=== PATIENT | male | born 1975 | race Caucasian/White ===

== ENCOUNTER 2017-03-17 01:16 | Inpatient (IN) | payer MEDICAID, OTHER ==
[2017-03-17] VITALS (27 sets, daily range): BP systolic 87–134; BP diastolic 58–82; PULSE 72–95; RESP 13–21; TEMP 98.8; Ht 165.1 cm; Wt 84.0 kg
[~2017-03-17] VITALS: Ht 165.1 cm; Wt 84.0 kg
--- NOTE | 2017-03-17 02:23 | ERA ---
ER Documentation Chief Complaint Date/Time DATE: 03/17/17 TIME: 02:22 Chief Complaint Chest pain HPI The patient is a 41-year-old male, presenting to the ER because of right-sided chest pain radiating to the right shoulder and right arm that woke him up around 12:40 AM, associated with diaphoresis. It lasted for approximately 20 minutes. He has minimal symptoms now, denies similar symptoms previously, denies fever, chills, neck pain, chest pain, dyspnea, abdominal pain, vomiting, dysuria, diarrhea. He does not smoke nor drink. No family cardiac history Past medical history: Hereditary angioedema Past surgical history: None ROS All systems reviewed and are negative except as per history of present illness. Allergies Allergies: Coded Allergies: No Known Allergy (Unverified , 04/17/15) PMhx/Soc Medical and Surgical Hx: pt denies Surgical Hx Hx Miscellaneous Medical Probl: Yes (angioedema) Hx Alcohol Use: No Hx Substance Use: No Hx Tobacco Use: No Smoking Status: Never smoker Physical Exam Vitals Vital Signs Date Time Temp Pulse Resp B/P Pulse Ox O2 Delivery O2 Flow Rate FiO2 03/17/17 03:42 81 18 132/89 100 Nasal Cannula 2.0 03/17/17 02:43 92 19 138/85 100 Nasal Cannula 2.0 03/17/17 02:42 Nasal Cannula 2 03/17/17 01:31 140/89 03/17/17 01:29 98.3 100 24 148/93 99 Physical Exam Const: No acute distress. Head: Atraumatic. Eyes: Normal Conjunctiva. ENT: Normal External Ears, Nose and Mouth. Neck: Full range of motion. No meningismus. Resp: Clear to auscultation bilaterally. Cardio: Regular rate and rhythm, no murmurs. Abd: Soft, non distended, normal bowel sounds, non tender. Skin: No petechiae or rashes. Back: No midline or flank tenderness. Ext: No cyanosis, or edema. Neur: Awake and alert. No focal deficit Psych: Normal Mood and Affect. Result Diagram: 03/17/17 0235 03/17/17 0235 Results 24 hrs Laboratory Tests Test 03/17/17 02:35 White Blood Count 10.210^3/ul Red Blood Count 4.9710^6/ul Hemoglobin 15.0g/dl Hematocrit 43.4% Mean Corpuscular Volume 87.3fl Mean Corpuscular Hemoglobin 30.2pg Mean Corpuscular Hemoglobin Concent 34.6g/dl Red Cell Distribution Width 13.5% Platelet Count 19128^3/UL Mean Platelet Volume 9.7fl Neutrophils % 62.6% Lymphocytes % 25.7% Monocytes % 10.2% Eosinophils % 1.0% Basophils % 0.2% Nucleated Red Blood Cells % 0.0/100WBC Neutrophils # 6.410^3/ul Lymphocytes # 2.610^3/ul Monocytes # 1.010^3/ul Eosinophils # 0.110^3/ul Basophils # 0.010^3/ul Nucleated Red Blood Cells # 0.010^3/ul Prothrombin Time 13.1Sec Prothrombin Time Ratio 1.0 INR International Normalized Ratio 0.99 Activated Partial Thromboplast Time 25.2Sec D-Dimer 652.87ng/ml D-Dimer Comment Sodium Level 142mmol/L Potassium Level 3.0mmol/L Chloride Level 99mmol/L Carbon Dioxide Level 28mmol/L Anion Gap 18 Blood Urea Nitrogen 14mg/dl Creatinine 0.91mg/dl Glucose Level 109mg/dl Calcium Level 9.0mg/dl Magnesium Level 2.4mg/dl Troponin I 1.870ng/ml Current Medications Medications (Trade) Dose Ordered Sig/Ximena Route PRN Reason Start Time Stop Time Status Last Admin Dose Admin Aspirin (Aspirin) 325 mg ONCE ONCE PO 03/17/17 03:30 03/17/17 03:32 DC 03/17/17 03:36 Nitroglycerin 1 inch 1 inch ONCE ONCE TD 03/17/17 03:30 03/17/17 03:32 DC 03/17/17 03:37 Potassium Chloride 250 ml @ 62.5 mls/hr ONCE ONCE IVPB 03/17/17 03:30 03/17/17 07:29 Potassium Chloride (KCl 10 MEQ/50 ML SW) 50 ml @ 50 mls/hr ONCE ONCE IVPB 03/17/17 03:30 03/17/17 04:29 03/17/17 03:45 Enoxaparin Sodium (Lovenox) 85 mg ONCE STAT SC 03/17/17 03:29 03/17/17 03:33 DC 03/17/17 03:37 IV Flush 10 ml 10 ml STK-MED ONCE .ROUTE 03/17/17 03:47 03/17/17 03:48 DC 03/17/17 03:58 Sodium Chloride 100 ml @ ud STK-MED ONCE .ROUTE 03/17/17 03:47 03/17/17 03:48 DC 03/17/17 03:58 Iohexol (Omnipaque) 100 ml @ ud STK-MED ONCE .ROUTE 03/17/17 03:47 03/17/17 03:48 DC 03/17/17 03:58 Procedures/[place] [address] Radiology Main Line: [phone] DIAGNOSTIC IMAGING REPORT Patient: HAYLEY TOSCANO : 1975 Age: 41 Sex: M MR #: [id number] DOS: 03/17/17 0228 Ordering MD: JULIO CACERES MD Location: E/R Room/Bed: PROCEDURE: XR Chest. CLINICAL INDICATION: Chest pain TECHNIQUE: Portable single view of the chest COMPARISON: None. FINDINGS: The cardiomediastinal silhouette appears within normal limits. The lungs are clear and no pleural effusion or significant edema is seen. No bony abnormality is seen. IMPRESSION: No definite acute pulmonary disease. RPTAT: HLBE Physician June Date Time Electronically viewed and signed by Kiana Rodriguez Physician on 03/17/2017 03 :27 LE/ CC: JULIO CACERES MD CT angiogram of the chest to rule out pulmonary embolism and bilateral venous ultrasound of the legs to rule out DVT is pending Magnesium level is pending EKG: Read by emergency physician at 1:19 AM Rate/Rhythm: Sinus tachycardia 110 beats/min QRS, ST, T-waves: No ST elevation, no T inversion, early repolarization Impression: Abnormal EKG EKG: Read by emergency physician 2:38 AM Rate/Rhythm: Normal Sinus Rhythm 88 beats/min QRS, ST, T-waves: No ST elevation, no T inversion Impression: Normal EKG EKG: Read by emergency physician 3:33 AM Rate/Rhythm: Normal Sinus Rhythm 82 beats/min QRS, ST, T-waves: No ST elevation, no T inversion Impression: Normal EKG MEDICAL MAKING DECISION: The patient is a 41-year-old male, presenting with acute non-STEMI, acute hypokalemia. He was treated with aspirin 325 mg p.o., 1 inch of nitroglycerin ointment to the chest wall, Lovenox 1 mg/kg subcutaneously for acute non-STEMI, potassium chloride 50 mEq IV due to low potassium The differential diagnoses considered include but are not limited to acute coronary syndrome, acute myocardial infarction, pericarditis, pulmonary embolism , aortic dissection, pneumonia, pleural effusion, pneumothorax, GERD, chest wall pain. Critical Care: Time: 45 minutes excluding all billable procedures. Treatments/Evaluations: Close monitoring and treatment of unstable vital signs, cardiorespiratory, and neurologic status, while maintaining tight balance of fluid, respiratory, and cardiac interventions. Departure Diagnosis: Primary Impression: Non-STEMI (non-ST elevated myocardial infarction) Additional Impression: Hypokalemia Condition: Critical Comments I discussed the findings with the patient. I discussed the patient with the on- call hospitalist Dr. Nicholson who was made aware of the lab, the treatment, the patient condition. The patient is admitted to ICU at 4:20 am JULIO CACERES MD Mar 17, 2017 02:23
[2017-03-17 02:52] LABS: ADD SCAN DIFF NO
[2017-03-17 02:53] LABS: BASOPHILS % 0.2 % (0.0-2.0); EOSINOPHILS # 0.1 10^3/ul (0.0-0.5); HEMATOCRIT 43.4 % (42.0-52.0); LYMPHOCYTES # 2.6 10^3/ul (0.8-2.9); LYMPHOCYTES % 25.7 % (15.0-51.0); MEAN CORPUSCULAR HEMOGLOBIN 30.2 pg (29.0-33.0); MEAN CORPUSCULAR HGB CONC 34.6 g/dl (32.0-37.0); MEAN CORPUSCULAR VOLUME 87.3 fl (82.0-101.0); MEAN PLATELET VOLUME 9.7 fl (7.4-10.4); MONOCYTES % 10.2 % (0.0-11.0); NEUTROPHIL # 6.4 10^3/ul (1.6-7.5); NEUTROPHILS % 62.6 % (39.0-77.0); PLATELET COUNT 329 10^3/UL (140-415); RED BLOOD COUNT 4.97 10^6/ul (4.70-6.10); RED CELL DISTRIBUTION WIDTH 13.5 % (11.5-14.5); WHITE BLOOD COUNT 10.2 10^3/ul (4.8-10.8)
[2017-03-17 03:01] LABS: INR 0.99; PROTIME 13.1 Sec (12.2-14.2)
[2017-03-17 03:02] LABS: PARTIAL THROMBOPLASTIN TIME 25.2 Sec (25.0-35.0)
[2017-03-17 03:04] LABS: D-DIMER 652.87 ng/ml (<460)
[2017-03-17 03:07] LABS: CREATININE 0.91 mg/dl (0.61-1.24)
[2017-03-17 03:25] LABS: TROPONIN-I 1.87 ng/ml (0.00-0.12)
--- NOTE | 2017-03-17 03:27 | RADRPT ---
PROCEDURE: XR Chest. CLINICAL INDICATION: Chest pain TECHNIQUE: Portable single view of the chest COMPARISON: None. FINDINGS: The cardiomediastinal silhouette appears within normal limits. The lungs are clear and no pleural e ffusion or significant edema is seen. No bony abnormality is seen. IMPRESSION: No definite acute pulmonary disease. RPTAT: HLBE Kiana Rodriguez Physician Date Time Electronically viewed and signed by Kiana Rodriguez, Physician on 03/17/2017 03:27 LE/
[2017-03-17] MEDS ORDERED: ENOXAPARIN 100 MG/ML SYG SC STA (03:29)
[2017-03-17] MEDS ORDERED: ASPIRIN 325 MG TAB PO ONE (03:30)
[2017-03-17] MEDS ORDERED: POTASSIUM CHLORIDE 250 ML IVPB ONE (03:30)
[2017-03-17] MEDS ORDERED: NITROGLYCERIN 2% 1 GM OINT PKT TD ONE (03:30)
[2017-03-17] MEDS ORDERED: POTASSIUM CHLORIDE 50 ML IVPB ONE (03:30)
[2017-03-17] MEDS ORDERED: SOD CHLORIDE 0.9% 100 ML ONE (03:47)
[2017-03-17] MEDS ORDERED: IOHEXOL 100 ML ONE (03:47)
--- NOTE | 2017-03-17 04:29 | RADRPT ---
PROCEDURE: CTA Chest CLINICAL INDICATION: Shortness of breath TECHNIQUE: Thin section spiral CT images were obtained through the vasculature of the chest during administration of 1 and a cc of Omnipaque 350 contrast material. Multiplanar reconstructions and 3 -D maximum intensity projection reconstructed images were performed. The images were reviewed on a PACS workstation. The total exam CTDI equals 16.58 mGy, and the total exam DLP equals 651.99 mGy-c m. One or more of the following dose reduction techniques were used: automated exposure control, ad justment of the mA and/or kV according to patient size, or use of iterative reconstruction technique . COMPARISON: Chest x-ray from 03/17 FINDINGS: Slight dependent atelectasis of the lungs is seen. No focal infiltrate or pleural effusion is seen. No pericardial effusion is seen. No hilar or mediastinal adenopathy is seen. There is no definite evidence for pulmonary embolus or aortic dissection. Visualized portions of the upper abdomen are unremarkable. There is mild degenerative change of the spine. IMPRESSION: No evidence for pulmonary embolus or aortic dissection. No definite acute disease. RPTAT: HLBE Physician June Date Time Electronically viewed and signed by Physician June on 03/17/2017 04:29 LENNOX/
[2017-03-17] MEDS ORDERED: NACL 0.9% 3 ML SYG IV SCH (04:30)
[2017-03-17] MEDS ORDERED: DEXTROSE 5%-0.45% NACL 1,000 ML IV SCH (04:30)
[2017-03-17] MEDS ORDERED: NITROGLYCERIN (SL) 0.4 MG TAB SL PRN (04:30)
[2017-03-17] MEDS ORDERED: ALBUTEROL/IPRATROPIUM (NEB) 3 ML AMP HHN PRN (04:30)
[2017-03-17] MEDS ORDERED: ACETAMINOPHEN 325 MG TAB PO PRN (04:30)
[2017-03-17] MEDS ORDERED: LORAZEPAM 2 MG INJ IV PRN (04:30)
[2017-03-17] MEDS ORDERED: morphine 2 MG INJ IV PRN (04:30)
[2017-03-17] MEDS ORDERED: ATORVASTATIN 40 MG TAB PO STA (04:30)
[2017-03-17] MEDS ORDERED: ONDANSETRON 4 MG INJ IV PRN (04:30)
--- NOTE | 2017-03-17 04:47 | RADRPT ---
PROCEDURE: US Lower extremity Venous. CLINICAL INDICATION: Rule out deep venous thrombosis, shortness of breath TECHNIQUE: Multiple sonographic images of the bilateral lower extremity deep venous system was obt ained utilizing grayscale, color-flow, compressive sonography and doppler imaging with augmentation. The images were reviewed on a PACS workstation. COMPARISON: None. FINDINGS: There is normal compressibility and flow within the bilateral common femoral, femoral, popliteal, po sterior tibial and peroneal veins. IMPRESSION: No sonographic evidence for bilateral lower extremity deep venous thrombosis. RPTAT: HJES .Charanjit Nichols MD, MD Date Time Electronically viewed and signed by .Charanjit Nichols MD, MD on 03/17/2017 04:46 .S/
[2017-03-17] MEDS: PANTOPRAZOLE 40 MG INJ IV SCH (05:21)
--- NOTE | 2017-03-17 07:23 | HP ---
DATE OF ADMISSION: 03/17/2017 TIME SEEN: 6:00 a.m. CHIEF COMPLAINT: Chest pain. HISTORY OF PRESENT ILLNESS: The patient is a 41-year-old male with history of Hereditary Angioedema on Danazol who presented to the ER with his complaining of chest pain. Chest pain is located in the right upper chest area radiating to his right shoulder and right arm. The pain started around 12:30 this morning. He denied any shortness of breath, nausea, vomiting, but he reported sweating. When he presented to the ER, blood pressure was 148/93, heart rate 100, respiratory rate 24, temperature 98.3, oxygen saturation 99% on room air. Laboratory value shows that his first troponin is elevated at 1.87, potassium is 3. Otherwise, CBC and BMP are within normal limits. Chest x-ray shows clear lungs. CT pulmonary angiogram shows no PE or aortic dissection. Lower extremity deep venous thrombosis was negative for thrombosis. He was given a treatment dose of Lovenox, aspirin 325 mg daily, Lipitor 40 mg, and nitroglycerin. REVIEW OF SYSTEMS: A 12-point review of systems was performed and negative except as mentioned in HPI. PAST MEDICAL HISTORY: As per HPI. PAST SURGICAL HISTORY: Denies. FAMILY HISTORY: Denied heart disease, stroke or sudden SOCIAL HISTORY: Denied a history of tobacco or illicit drug use but drinks alcohol occasionally. ALLERGIES: NO KNOWN DRUG ALLERGIES. HOME MEDICATIONS: Danazol PHYSICAL EXAMINATION VITAL SIGNS: Blood pressure 101/71, heart rate 96, respiratory rate 18, temperature 98.3, oxygen saturation 100% on 2 liters. GENERAL: The patient is diaphoretic, but he is alert and oriented x4. HEENT: No obvious head deformity. Pupils are reactive to light. Extraocular movements intact. CARDIOVASCULAR: Slightly tachycardic with regular rhythm. LUNGS: Clear. ABDOMEN: Soft, nontender. Positive bowel sounds. EXTREMITIES: No edema in the lower extremities. NEUROLOGIC: No focal deficits. LABORATORY: Troponin 1.87 and potassium 3. Otherwise, CBC and BMP are within normal limits. IMAGING: A chest x-ray and CT pulmonary angiogram and lower extremity venous Doppler ultrasound with results as mentioned in the HPI. IMPRESSION: 1. Non-ST elevation myocardial infarction. 2. Chest pain secondary to above. 3. Hypokalemia. 4. History of Hereditary Angioedema PLAN: We will admit the patient to either telemetry or ICU. We will trend his troponins. He has already received a treatment dose of Lovenox. Will continue aspirin, statin, and I will start him on a beta janice and he will receive as needed nitroglycerin and morphine. We will continue oxygen therapy. We will obtain a 2D echo and place a cardiology consultation. We will check an A1c, fasting lipids, and TSH. Cont Danazol for Angioedema. Further workup and management per clinical course. Dictated By: XENIA PATEL/[place] Conf#: [id number] DID#: [id number] MTDD
[2017-03-17] MEDS ORDERED: METOPROLOL 25 MG TAB PO SCH (09:00)
[2017-03-17] MEDS ORDERED: ASPIRIN 81 MG TAB PO SCH (09:00)
[2017-03-17 09:12] LABS: CHOL/HDL RATIO 5.5 RATIO
[2017-03-17 09:43] LABS: THYROID STIMULATING HORMONE 2.79 MIU/L (0.465-4.680)
[2017-03-17 10:08] LABS: CK-MB 15.3 ng/ml (0.0-2.4)
[2017-03-17] MEDS ORDERED: [UNRECOGNIZED DRUG - CODE] PO (10:28)
[2017-03-17] MEDS ORDERED: PROPOFOL 100 ML IV ONE (10:30)
[2017-03-17 10:39] LABS: TROPONIN-I 4.89 ng/ml (0.00-0.12)
[2017-03-17] MEDS ORDERED: DIPHENHYDRAMINE 50 MG INJ IV ONE (13:30)
[2017-03-17 14:43] LABS: TROPONIN-I 3.22 ng/ml (0.00-0.12)
[2017-03-17] MEDS ORDERED: HEPARIN 1000 UNITS/ML 10 ML INJ IV ONE (15:00)
[2017-03-17] MEDS ORDERED: HEPARIN 1000 UNITS/ML 10 ML INJ IV PRN (15:00)
[2017-03-17 15:19] LABS: ADD SCAN DIFF NO
[2017-03-17 15:22] LABS: BASOPHILS % 0.2 % (0.0-2.0); EOSINOPHILS # 0.2 10^3/ul (0.0-0.5); EOSINOPHILS % 1.6 % (0.0-7.0); HEMATOCRIT 38.1 % (42.0-52.0); LYMPHOCYTES # 3.1 10^3/ul (0.8-2.9); LYMPHOCYTES % 34.1 % (15.0-51.0); MEAN CORPUSCULAR HEMOGLOBIN 30.2 pg (29.0-33.0); MEAN CORPUSCULAR HGB CONC 34.1 g/dl (32.0-37.0); MEAN CORPUSCULAR VOLUME 88.6 fl (82.0-101.0); MEAN PLATELET VOLUME 9.7 fl (7.4-10.4); MONOCYTE # 0.9 10^3/ul (0.3-0.9); MONOCYTES % 9.3 % (0.0-11.0); NEUTROPHILS % 54.5 % (39.0-77.0); PLATELET COUNT 304 10^3/UL (140-415); RED CELL DISTRIBUTION WIDTH 13.8 % (11.5-14.5); WHITE BLOOD COUNT 9.2 10^3/ul (4.8-10.8)
[2017-03-17 15:34] LABS: INR 0.96; PARTIAL THROMBOPLASTIN TIME 28.4 Sec (25.0-35.0); PROTIME 12.8 Sec (12.2-14.2)
[2017-03-17] MEDS: HEPARIN 25000 UNITS/250 ML 250 ML IV SCH ×2 (15:37→23:22)
--- NOTE | 2017-03-17 17:15 | CONS ---
DATE OF ADMISSION: 03/17/2017 DATE OF CONSULTATION: 03/17/2017 TYPE OF CONSULTATION: Cardiology REASON FOR CONSULTATION: Non-ST elevation myocardial infarction. REQUESTING PHYSICIAN: Sergey Sesay MD from the hospitalist service. HISTORY OF PRESENT ILLNESS: Mr. Preciado is a 41-year-old male with a history of hereditary angioedem a on danazol medication, who initially presented with complaints of substernal chest pain radiating to his throat and his shoulder, described as a tightness or pressure-like sensation. The patient pearl bsequently presented to the emergency department where upon arrival, temperature 98.3, blood pressur e 148/93, pulse 100, respiratory rate 24, saturating 99%. The patient's labs revealed white count 1 0.2, hemoglobin 15, platelet count 329. Sodium 142, potassium 3.0, creatinine of 0.91, BUN 14. Tro ponin positive at 1.87. INR of 0.99. The patient underwent a chest x-ray revealing no acute cardio pulmonary abnormalities. A venous ultrasound revealing no sonographic evidence of lower extremity d eep venous thrombosis. A CT/CTA revealing no evidence of pulmonary embolus or aortic dissection. T he patient's electrocardiogram revealed sinus tachycardia at a rate of 110, normal axis, normal inte rvals with nonspecific ST and T-wave abnormalities and borderline inferior Q's. The patient thereaf ter had serial EKGs revealing J-point elevation, but no true significant ST elevations and ongoing b orderline inferior Q's. The patient had troponins trended going from 1.87 up to 4.89, now back down to 3.22. The patient has been treated with aspirin, IV heparin and beta janice, and now awaits ad luis to the hospital. PAST MEDICAL HISTORY: As above in HPI. MEDICATIONS CURRENTLY IN HOSPITAL: 1. Lipitor 40 mg at bedtime. 2. Heparin IV. 3. Aspirin 81 mg daily. 4. Metoprolol 25 mg q.12h. 5. Protonix 40 mg IV daily. 6. IV fluid hydration at 100 mL/hour D5. ALLERGIES: TYLENOL. SOCIAL HISTORY: No tobacco, ETOH or illicit drug use. FAMILY HISTORY: No history of sudden cardiac or early CAD. REVIEW OF SYSTEMS: As above in HPI. CONSTITUTIONAL: No fevers, chills. PULMONARY: No current shortness of breath. CARDIOVASCULAR: Chest pain, non-ST elevation myocardial infarction. GASTROINTESTINAL: No vomiting. GENITOURINARY: No hematuria. MUSCULOSKELETAL: Degenerative joint disease. PSYCHIATRIC: The patient denies depression. NEUROLOGIC: No documented history of CVA. PHYSICAL EXAMINATION: VITAL SIGNS: Temperature of 98.3, blood pressure 100/73, pulse 84, respiratory rate 17, saturating 97%. GENERAL: The patient is alert, awake, in no acute distress. NECK: JVP approximately 8 cm water. CHEST: Fair air movement throughout. HEART: Regular rate and rhythm. Normal S1, S2, I/ systolic murmur, nondisplaced PMI. ABDOMEN: Positive bowel sounds, soft. EXTREMITIES: No edema, 1+ pulses bilaterally posterior tibial. LABORATORY DATA: As above in HPI with most recent white count 9.2, hemoglobin 13, platelet count 30 4. LDL 67, HDL 21. TSH 2.79. IMAGING STUDIES: As above in HPI. No further imaging studies for my review at this time. ECG: As above in HPI. No further electrocardiograms for my review at this time. IMPRESSION: 1. Non-ST elevation myocardial infarction with now currently down-trending cardiac enzymes after in itial uptrend. 2. Chest pain secondary to #1. 3. Abnormal electrocardiogram with inferior Q's. 4. Hypertension, borderline. 5. Hereditary angioedema. RECOMMENDATIONS: 1. At this time, the patient will be admitted to telemetry monitoring to follow rhythm and rate con trol closely. 2. We will continue to trend the patient's cardiac enzymes to assess for any significant ongoing ca rdiac damage. 3. Continue the patient's IV heparin at this time and the patient's aspirin. Also continue the [facility] ient's beta janice. Will decrease dose to allow the patient to better tolerate. 4. Check a 2D echocardiogram to further assess patient's ejection fraction, wall motion and any yashira or valve abnormalities. 5. Continue the patient's statin therapy. 6. Given the patient's non-ST elevation myocardial infarction, I believe this patient will benefit from inpatient revascularization with left heart catheterization during this index admission and martin s, we scheduled to take place as soon as possible. Thank you for allowing me to take part in the care of this patient. I will continue to follow him melissa henry closely with you. Further recommendations to be made as the patient progresses through his [facility] clinical course. Dictated By: MICHEAL JARAMILLO/[place] Conf#: [id number] DID#: [id number] CC: SERGEY SESAY MD;*[facility]*
[2017-03-17] MEDS: DEXTROSE 5%-0.45% NACL 1,000 ML IV SCH (17:19)
[2017-03-17] MEDS: ATORVASTATIN 40 MG TAB PO SCH (21:37)
[2017-03-17] MEDS: METOPROLOL 25 MG TAB PO SCH (21:38)
--- NOTE | 2017-03-17 21:45 | EN ---
Date/Time of Note Date/Time of Note DATE: 03/17/17 TIME: 21:39 Event Note Medicine Medicine Event Note Wrong chart was accessed. XENIA SESAY MD Mar 17, 2017 21:45 family was aware and were at bedside just a little while ago. . XENIA SESAY MD Mar 17, 2017 21:45
[2017-03-17 22:44] LABS: CK-MB 7.79 ng/ml (0.0-2.4); TROPONIN-I 2.76 ng/ml (0.00-0.12)
[2017-03-18] VITALS (10 sets, daily range): BP systolic 118–137; BP diastolic 61–78; PULSE 73–95; RESP 16–18
[2017-03-18] MEDS: PANTOPRAZOLE 40 MG INJ IV SCH (05:23)
[2017-03-18] MEDS: DEXTROSE 5%-0.45% NACL 1,000 ML IV SCH ×2 (05:23→18:09)
[2017-03-18 06:43] LABS: ADD SCAN DIFF NO
[2017-03-18 06:50] LABS: BASOPHILS % 0.3 % (0.0-2.0); EOSINOPHILS # 0.1 10^3/ul (0.0-0.5); EOSINOPHILS % 0.8 % (0.0-7.0); HEMATOCRIT 41.4 % (42.0-52.0); HEMOGLOBIN 13.9 g/dl (14.0-18.0); LYMPHOCYTES # 3.2 10^3/ul (0.8-2.9); LYMPHOCYTES % 29.7 % (15.0-51.0); MEAN CORPUSCULAR HEMOGLOBIN 29.4 pg (29.0-33.0); MEAN CORPUSCULAR HGB CONC 33.6 g/dl (32.0-37.0); MEAN CORPUSCULAR VOLUME 87.5 fl (82.0-101.0); MEAN PLATELET VOLUME 10.2 fl (7.4-10.4); MONOCYTE # 0.9 10^3/ul (0.3-0.9); MONOCYTES % 8.5 % (0.0-11.0); NEUTROPHIL # 6.6 10^3/ul (1.6-7.5); NEUTROPHILS % 60.3 % (39.0-77.0); PLATELET COUNT 367 10^3/UL (140-415); RED BLOOD COUNT 4.73 10^6/ul (4.70-6.10); RED CELL DISTRIBUTION WIDTH 13.4 % (11.5-14.5); WHITE BLOOD COUNT 10.9 10^3/ul (4.8-10.8)
[2017-03-18 07:08] LABS: POTASSIUM 3.2 mmol/L (3.5-5.1)
[2017-03-18 07:10] LABS: CREATININE 0.77 mg/dl (0.61-1.24)
[2017-03-18 07:11] LABS: ALBUMIN/GLOBULIN RATIO 1.11; BILIRUBIN,INDIRECT 0.7 mg/dl (0-1.1); BILIRUBIN,TOTAL 0.7 mg/dl (0.2-1.3); CALCIUM 8.6 mg/dl (8.4-10.2); TOTAL PROTEIN 7.6 g/dl (6.1-8.1)
[2017-03-18 07:12] LABS: MAGNESIUM 2.1 mg/dl (1.7-2.5)
[2017-03-18] MEDS: HEPARIN 25000 UNITS/250 ML 250 ML IV SCH ×3 (07:33→21:48)
[2017-03-18] MEDS: METOPROLOL 25 MG TAB PO SCH ×2 (08:17→21:40)
[2017-03-18] MEDS ORDERED: POTASSIUM CHLORIDE (SR) 20 MEQ TAB PO STA (13:31)
--- NOTE | 2017-03-18 13:31 | CONS ---
Date/Time of Note Date/Time of Note DATE: 03/18/17 TIME: 13:28 Assessment/Plan Assessment/Plan Chief Complaint/Hosp Course IMPRESSION: 1. Non-ST elevation myocardial infarction with now currently down-trending cardiac enzymes after initial uptrend. 2. Chest pain secondary to #1. 3. Abnormal electrocardiogram with inferior Q's. 4. Hypertension, borderline. 5. Hereditary angioedema. 6.Hypokalemia Recc: -Tele -serial ecg;'s -Continue statin/heparin -trend cardiac enzymes -Not on asa due to possible side effect -LHC with probable PTCA/stent in am tomorrow -replete kcl Problems: Consultation Date/Type/Reason Admit Date/Time Mar 17, 2017 at 04:36 Initial Consult Date 03/17/2017 Type of Consultation: Cardiology Reason for Consultation Nstemi Referring Provider: XENIA SESAY MD Exam/Review of Systems Vital Signs Vitals Vital Signs Date Time Temp Pulse Resp B/P Pulse Ox O2 Delivery O2 Flow Rate FiO2 03/18/17 12:19 91 03/18/17 11:34 98.9 18 118/61 97 03/17/17 20:17 Room Air 03/17/17 19:38 2.0 Intake and Output 03/17/17 03/17/17 03/18/17 14:59 22:59 06:59 Intake Total 700 ml 395 ml 1450 ml Output Total 1300 ml Balance 700 ml 395 ml 150 ml Exam Review of Systems: CONSTITUTIONAL: No fevers, chills. PULMONARY: No sob CARDIOVASCULAR:intermittent chest pain GASTROINTESTINAL: No nausea/vomiting. GENITOURINARY: No hematuria/dysuria. MUSCULOSKELETAL: No myagias/arthalgias. PSYCHIATRIC: The patient denies depression. NEUROLOGIC: No weakness Constitutional: alert, oriented Psych: no complaints Head: normocephalic ENMT: mucosa pink and moist Neck: jvd (8 cm water), supple Respiratory: clear to auscultation Cardiovascular: regular rate and rhythm Gastrointestinal: non-tender, soft Musculoskeletal: muscle tone (normal) Extremities: edema (none) Neurological: other (No focal deficits) Results Result Diagram: 03/18/17 0547 03/18/17 0547 Results 24 hrs Laboratory Tests Test 03/17/17 14:10 03/17/17 14:50 03/17/17 21:45 03/18/17 05:47 Creatine Kinase 231 H 204 H Creatine Kinase Index 4.8 3.8 Creatinine Kinase MB (Mass) 11.00 H 7.79 H Troponin I 3.220 *H 2.760 *H White Blood Count 9.2 10.9 H Red Blood Count 4.30 L 4.73 Hemoglobin 13.0 L 13.9 L Hematocrit 38.1 L 41.4 L Mean Corpuscular Volume 88.6 87.5 Mean Corpuscular Hemoglobin 30.2 29.4 Mean Corpuscular Hemoglobin Concent 34.1 33.6 Red Cell Distribution Width 13.8 13.4 Platelet Count 304 367 # Mean Platelet Volume 9.7 10.2 Neutrophils % 54.5 60.3 Lymphocytes % 34.1 29.7 Monocytes % 9.3 8.5 Eosinophils % 1.6 0.8 Basophils % 0.2 0.3 Nucleated Red Blood Cells % 0.0 0.0 Neutrophils # 5.0 6.6 Lymphocytes # 3.1 H 3.2 H Monocytes # 0.9 0.9 Eosinophils # 0.2 0.1 Basophils # 0.0 0.0 Nucleated Red Blood Cells # 0.0 0.0 Prothrombin Time 12.8 Prothrombin Time Ratio 1.0 INR International Normalized Ratio 0.96 Activated Partial Thromboplast Time 28.4 40.2 H 57.9 H Sodium Level 142 Potassium Level 3.2 L Chloride Level 102 Carbon Dioxide Level 27 Anion Gap 16 Blood Urea Nitrogen 6 L Creatinine 0.77 Glucose Level 109 Calcium Level 8.6 Phosphorus Level 3.0 Magnesium Level 2.1 Total Bilirubin 0.7 Direct Bilirubin 0.00 Indirect Bilirubin 0.7 Aspartate Amino Transf (AST/SGOT) 34 Alanine Aminotransferase (ALT/SGPT) 30 Alkaline Phosphatase 67 Total Protein 7.6 Albumin 4.0 Globulin 3.60 H Albumin/Globulin Ratio 1.11 Medications Medications Current Medications Lorazepam (Ativan) 0.5 mg Q6H PRN IV ANXIETY; Start 03/17/17 at 04:30 Ondansetron HCl (Zofran Inj) 4 mg Q6H PRN IV NAUSEA AND/OR VOMITING; Start at 04:30 Nitroglycerin (Nitroglycerin (Sl Tab) 0.4 Mg) 1 tab Q5M PRN SL CHEST PAIN; Start 03/17/17 at 04:30 Morphine Sulfate (morphine) 2 mg Q4H PRN IV PAIN LEVEL 7-10; Start 03/17/17 at 04:30 Pantoprazole (Protonix Iv) 40 mg DAILY@06 IV Last administered on 03/18/17 05: 23; Admin Dose 40 MG; Start 03/17/17 at 06:00 Atorvastatin Calcium (Lipitor) 40 mg QHS PO Last administered on 03/17/17 21: 37; Admin Dose 40 MG; Start 03/17/17 at 21:00 Metoprolol Tartrate 12.5 mg 12.5 mg Q12 PO Last administered on 03/18/17 08:17 ; Admin Dose 12.5 MG; Start 03/17/17 at 21:00 Dextrose/Sodium Chloride (D5-1/2ns) 1,000 ml @ 75 mls/hr [id number] IV Last administered on 03/18/17 05:23; Admin Dose 75 MLS/HR; Start 03/17/17 at 17:30 MICHEAL HERBERT Mar 18, 2017 13:30
--- NOTE | 2017-03-18 15:29 | PN ---
Date/Time of Note Date/Time of Note DATE: 03/18/17 TIME: 15:25 Assessment/Plan Lines/Catheters IV Catheter Type (from [facility]): Peripheral IV Urinary Cath still in place: No Assessment/Plan Chief Complaint/Hosp Course Assessment and plan 1. Non-ST elevated myocardial infarction. Monitor troponin level. Continue on heparin drip for now. Tentative plan for PTCA on 03/19/2017. Continue on statin medication and beta janice 2. Hypokalemia. We will monitor and replete as needed 3. Leukocytosis. Afebrile at present. Likely reactive. We'll monitor for now Disposition and plan: Tentative plan for PTCA on 03/19/2017. We'll follow-up Discussed plan care of Problems: Subjective 24 Hr Interval Summary Free Text/Dictation Denies any chest pain at this time. Appears comfortable. Reports better breathing Exam/Review of Systems Vital Signs Vitals Vital Signs Date Time Temp Pulse Resp B/P Pulse Ox O2 Delivery O2 Flow Rate FiO2 03/18/17 12:19 91 03/18/17 11:34 98.9 18 118/61 97 03/17/17 20:17 Room Air 03/17/17 19:38 2.0 Intake and Output 03/17/17 03/17/17 03/18/17 14:59 22:59 06:59 Intake Total 700 ml 395 ml 1450 ml Output Total 1300 ml Balance 700 ml 395 ml 150 ml Exam Constitutional: alert, oriented Psych: nl mood/affect Head: normocephalic Eyes: nl conjunctiva Neck: non-tender, supple, No jvd Respiratory: clear to auscultation Cardiovascular: regular rate and rhythm Gastrointestinal: non-tender, soft Musculoskeletal: nl extremities to inspection Extremities: normal pulses Neurological: DIRECTOR BUSINESS II-XII intact, nl mental status, nl speech Skin: nl turgor, No rash or lesions Results Result Diagram: 03/18/17 0547 03/18/17 0547 Results 24 hrs Laboratory Tests Test 03/17/17 21:45 03/18/17 05:47 03/18/17 13:55 Activated Partial Thromboplast Time 40.2 H 57.9 H 63.9 H Creatine Kinase 204 H Creatine Kinase Index 3.8 Creatinine Kinase MB (Mass) 7.79 H Troponin I 2.760 *H White Blood Count 10.9 H Red Blood Count 4.73 Hemoglobin 13.9 L Hematocrit 41.4 L Mean Corpuscular Volume 87.5 Mean Corpuscular Hemoglobin 29.4 Mean Corpuscular Hemoglobin Concent 33.6 Red Cell Distribution Width 13.4 Platelet Count 367 # Mean Platelet Volume 10.2 Neutrophils % 60.3 Lymphocytes % 29.7 Monocytes % 8.5 Eosinophils % 0.8 Basophils % 0.3 Nucleated Red Blood Cells % 0.0 Neutrophils # 6.6 Lymphocytes # 3.2 H Monocytes # 0.9 Eosinophils # 0.1 Basophils # 0.0 Nucleated Red Blood Cells # 0.0 Sodium Level 142 Potassium Level 3.2 L Chloride Level 102 Carbon Dioxide Level 27 Anion Gap 16 Blood Urea Nitrogen 6 L Creatinine 0.77 Glucose Level 109 Calcium Level 8.6 Phosphorus Level 3.0 Magnesium Level 2.1 Total Bilirubin 0.7 Direct Bilirubin 0.00 Indirect Bilirubin 0.7 Aspartate Amino Transf (AST/SGOT) 34 Alanine Aminotransferase (ALT/SGPT) 30 Alkaline Phosphatase 67 Total Protein 7.6 Albumin 4.0 Globulin 3.60 H Albumin/Globulin Ratio 1.11 Medications Medications Current Medications Lorazepam (Ativan) 0.5 mg Q6H PRN IV ANXIETY; Start 03/17/17 at 04:30 Ondansetron HCl (Zofran Inj) 4 mg Q6H PRN IV NAUSEA AND/OR VOMITING; Start at 04:30 Nitroglycerin (Nitroglycerin (Sl Tab) 0.4 Mg) 1 tab Q5M PRN SL CHEST PAIN; Start 03/17/17 at 04:30 Morphine Sulfate (morphine) 2 mg Q4H PRN IV PAIN LEVEL 7-10; Start 03/17/17 at 04:30 Pantoprazole (Protonix Iv) 40 mg DAILY@06 IV Last administered on 03/18/17 05: 23; Admin Dose 40 MG; Start 03/17/17 at 06:00 Atorvastatin Calcium (Lipitor) 40 mg QHS PO Last administered on 03/17/17 21: 37; Admin Dose 40 MG; Start 03/17/17 at 21:00 Metoprolol Tartrate 12.5 mg 12.5 mg Q12 PO Last administered on 03/18/17 08:17 ; Admin Dose 12.5 MG; Start 03/17/17 at 21:00 Dextrose/Sodium Chloride (D5-1/2ns) 1,000 ml @ 75 mls/hr [id number] IV Last administered on 03/18/17t 05:23; Admin Dose 75 MLS/HR; Start 03/17/17 at 17:30 Diazepam (Valium) 5 mg OC PO ; Start 03/19/17 at 07:00; Stop 03/19/17 at 13:00 Diphenhydramine HCl (Benadryl) 50 mg OC PO ; Start 03/19/17 at 07:00; Stop at 13:00 DA HERNANDEZ Mar 18, 2017 15:29
--- NOTE | 2017-03-18 16:35 | RADRPT ---
Echocardiogram Report ADDENDUM Patient Name: HAYLEY TOSCANO Gender: Male Date: 1975 Study Date: 18-Mar-2017 Fire Technology Instructor: DONN Location: E Ref. Physician: XENIA SESAY Quality: Adequate Procedures: Transthoracic echocardiogram with complete 2D, M-Mode, and doppler examination. Indications: NSTEMI. 2D/M Mode Doppler Measurement Value Normal Ranges Measurement Value Normal Ranges AoR Diam MM 3.1 cm AV Peak Abraham 1.1 m/sec ACS MM 2.0 cm AV Peak PG 5.2 mmHg LVIDd 2D 4.4 3.5 - 5.6 cm LVOT Peak Abraham 0.6 m/sec LVIDs 2D 3.2 2.1 - 4.1 cm LVOT Peak PG 1.7 mmHg LVPWd 2D 1.0 0.6 - 1.1 cm MV E Peak Abraham 0.8 m/sec IVSd 2D 1.1 0.6 - 1.1 cm MV A Peak Abraham 0.5 m/sec EDV 2D 86.9 cm3 MV E/A 1.6 ESV 2D 33.8 cm3 MV Decel Time 181 msec LA Dimen 2D 34.0 2.3 - 4.0 cm MV Decel Mora 4 MV E/A 1.6 PV Peak Abraham 1.2 m/sec PV Peak PG 6.0 mmHg Findings Left Ventricle: Normal left ventricular systolic function. Normal left ventricular cavity size. Normal left ventricular wall thickness. Ejection fraction is visually estimated at 4045 %. Tissue Doppler/Mitral Doppler indices are within normal limits. E/E`=8. These segments of the LV are hypokinetic mid septum segment. Right Ventricle: Normal right ventricular size. Normal right ventricular systolic function. Left Atrium: The left atrium is normal in size. Right Atrium: The right atrium is normal in size. Atrial Septum: Normal atrial septum. Mitral Valve: Normal appearance and function of the mitral valve with trace physiologic regurgitation. Aortic Valve: No significant aortic stenosis or insufficiency. Normal trileaflet aortic valve structure. Tricuspid Valve: Normal appearance and function of the tricuspid valve with trace physiologic regurgitation. Pulmonic Valve: Normal pulmonic valve appearance. There is trace pulmonic regurgitation. Pericardium: Normal pericardium with no significant pericardial effusion. Aorta: Normal aortic root. IVC: Normal size and normal respiratory collapse consistent with normal right atrial pressure. Pulmonary Artery: Normal pulmonary artery size. Conclusions 1.Normal left ventricular systolic function. Normal left ventricular cavity size. Normal left ventricular wall thickness. Ejection fraction is visually estimated at 40-45 %. Tissue Doppler/Mitral Doppler indices are within normal limits. E/E`=8. These segments of the LV are hypokinetic mid septum segment. 2.Normal appearance and function of the mitral valve with trace physiologic regurgitation. 3.Normal appearance and function of the tricuspid valve with trace physiologic regurgitation. 4.Normal pulmonic valve appearance. There is trace pulmonic regurgitation. Electronically Signed By: Kurt Hanks 18-Mar-2017 16:39:40 -0700 [ADDENDUM] Patient Name: HAYLEY TOSCANO Study Date: 18-Mar-2017 [id number]
[2017-03-18] MEDS: ATORVASTATIN 40 MG TAB PO SCH (21:40)
[2017-03-19] VITALS (19 sets, daily range): BP systolic 97–144; BP diastolic 60–81; PULSE 68–99; RESP 12–21
[2017-03-19 04:08] LABS: ADD SCAN DIFF NO
[2017-03-19 04:26] LABS: INR 0.99; PROTIME 13.1 Sec (12.2-14.2)
[2017-03-19 04:37] LABS: BASOPHILS % 0.4 % (0.0-2.0); EOSINOPHILS # 0.3 10^3/ul (0.0-0.5); HEMATOCRIT 40.3 % (42.0-52.0); HEMOGLOBIN 13.4 g/dl (14.0-18.0); LYMPHOCYTES # 3.3 10^3/ul (0.8-2.9); LYMPHOCYTES % 35.8 % (15.0-51.0); MEAN CORPUSCULAR HEMOGLOBIN 29.5 pg (29.0-33.0); MEAN CORPUSCULAR HGB CONC 33.3 g/dl (32.0-37.0); MEAN CORPUSCULAR VOLUME 88.6 fl (82.0-101.0); MEAN PLATELET VOLUME 9.7 fl (7.4-10.4); MONOCYTE # 0.7 10^3/ul (0.3-0.9); MONOCYTES % 7.9 % (0.0-11.0); NEUTROPHIL # 4.8 10^3/ul (1.6-7.5); NEUTROPHILS % 52.6 % (39.0-77.0); PLATELET COUNT 351 10^3/UL (140-415); RED BLOOD COUNT 4.55 10^6/ul (4.70-6.10); RED CELL DISTRIBUTION WIDTH 13.7 % (11.5-14.5); WHITE BLOOD COUNT 9.1 10^3/ul (4.8-10.8)
[2017-03-19 04:47] LABS: POTASSIUM 3.5 mmol/L (3.5-5.1)
[2017-03-19 04:50] LABS: CALCIUM 8.6 mg/dl (8.4-10.2); CREATININE 0.73 mg/dl (0.61-1.24)
[2017-03-19] MEDS: PANTOPRAZOLE 40 MG INJ IV SCH (06:09)
[2017-03-19] MEDS: HEPARIN 25000 UNITS/250 ML 250 ML IV SCH ×2 (06:13→07:40)
[2017-03-19] MEDS ORDERED: DIAZEPAM 5 MG TAB PO SCH (07:00)
[2017-03-19] MEDS ORDERED: DIPHENHYDRAMINE 50 MG CAP PO SCH (07:00)
[2017-03-19] MEDS: DEXTROSE 5%-0.45% NACL 1,000 ML IV SCH ×2 (07:06→22:50)
[2017-03-19] MEDS: METOPROLOL 25 MG TAB PO SCH ×3 (09:06→21:52)
[2017-03-19] MEDS ORDERED: LIDOCAINE 1% (MDV) 20 ML INJ ONE (10:28)
[2017-03-19] MEDS ORDERED: HEPARIN 1000 UNITS/ML 10 ML INJ ONE (10:28)
[2017-03-19] MEDS ORDERED: IODIXANOL LOCM 100 ML BTL ONE ×2 (10:28→11:18)
[2017-03-19] MEDS ORDERED: VERAPAMIL 5 MG INJ ONE (10:28)
[2017-03-19] MEDS ORDERED: NITROGLYCERIN (IC) 100 MCG/ML INJ ONE (10:28)
[2017-03-19] MEDS ORDERED: FENTAnyl 50 MCG/ML VIAL ONE (10:29)
[2017-03-19] MEDS ORDERED: MIDAZOLAM 1 MG/ML 2 ML INJ ONE (10:29)
[2017-03-19] MEDS ORDERED: SOD CHLORIDE 0.9% 500 ML ONE (11:15)
[2017-03-19] MEDS ORDERED: SOD CHLORIDE 0.9% 1,000 ML IV SCH (11:33)
--- NOTE | 2017-03-19 11:37 | CONS ---
Date/Time of Note Date/Time of Note DATE: 03/19/17 TIME: 11:35 Assessment/Plan Assessment/Plan Chief Complaint/Hosp Course IMPRESSION: 1. Non-ST elevation myocardial infarction with now currently down-trending cardiac enzymes after initial uptrend. 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 Chest pain secondary to #1. 3. Abnormal electrocardiogram with inferior Q's. 4. Hypertension, borderline. 5. Hereditary angioedema. 6.Hypokalemia-improved Recc: -Tele -serial ecg;'s -Continue statin/heparin -trend cardiac enzymes -Not on asa due to possible side effect -Start BB in the setting of myocardial bridging Problems: Consultation Date/Type/Reason Admit Date/Time Mar 17, 2017 at 04:36 Initial Consult Date 03/17/2017 Type of Consultation: Cardiology Reason for Consultation Nstemi Referring Provider: XENIA SESAY MD Exam/Review of Systems Vital Signs Vitals Vital Signs Date Time Temp Pulse Resp B/P Pulse Ox O2 Delivery O2 Flow Rate FiO2 03/19/17 08:08 83 03/19/17 07:20 98.8 18 112/66 97 03/17/17 20:17 Room Air 03/17/17 19:38 2.0 Intake and Output 03/18/17 03/18/17 03/19/17 15:00 23:00 07:00 Intake Total 1830 ml 1570 ml Output Total 1900 ml 900 ml Balance -70 ml 670 ml Exam Review of Systems: CONSTITUTIONAL: No fevers, chills. PULMONARY: No sob CARDIOVASCULAR: No chest pain/palpitations GASTROINTESTINAL: No nausea/vomiting. GENITOURINARY: No hematuria/dysuria. MUSCULOSKELETAL: No myagias/arthalgias. PSYCHIATRIC: The patient denies depression. NEUROLOGIC: No weakness Constitutional: alert, oriented Psych: no complaints Head: normocephalic ENMT: mucosa pink and moist Neck: jvd (8-9 cm water), supple Respiratory: clear to auscultation Cardiovascular: regular rate and rhythm Gastrointestinal: non-tender, soft Musculoskeletal: muscle tone (normal) Extremities: edema (none) Neurological: other (No focal deficits) Results Result Diagram: 5/1/17 0400 5/1/17 0400 Results 24 hrs Laboratory Tests Test 03/18/17 13:55 03/18/17 20:55 03/19/17 04:00 Activated Partial Thromboplast Time 63.9 H 77.6 *H 82.5 *H White Blood Count 9.1 Red Blood Count 4.55 L Hemoglobin 13.4 L Hematocrit 40.3 L Mean Corpuscular Volume 88.6 Mean Corpuscular Hemoglobin 29.5 Mean Corpuscular Hemoglobin Concent 33.3 Red Cell Distribution Width 13.7 Platelet Count 351 Mean Platelet Volume 9.7 Neutrophils % 52.6 Lymphocytes % 35.8 Monocytes % 7.9 Eosinophils % 3.0 Basophils % 0.4 Nucleated Red Blood Cells % 0.0 Neutrophils # 4.8 Lymphocytes # 3.3 H Monocytes # 0.7 Eosinophils # 0.3 Basophils # 0.0 Nucleated Red Blood Cells # 0.0 Prothrombin Time 13.1 Prothrombin Time Ratio 1.0 INR International Normalized Ratio 0.99 Sodium Level 142 Potassium Level 3.5 Chloride Level 102 Carbon Dioxide Level 28 Anion Gap 16 Blood Urea Nitrogen 8 Creatinine 0.73 Glucose Level 106 Calcium Level 8.6 Medications Medications Current Medications Lorazepam (Ativan) 0.5 mg Q6H PRN IV ANXIETY; Start 03/17/17 at 04:30 Ondansetron HCl (Zofran Inj) 4 mg Q6H PRN IV NAUSEA AND/OR VOMITING; Start at 04:30 Nitroglycerin (Nitroglycerin (Sl Tab) 0.4 Mg) 1 tab Q5M PRN SL CHEST PAIN; Start 03/17/17 at 04:30 Morphine Sulfate (morphine) 2 mg Q4H PRN IV PAIN LEVEL 7-10; Start 03/17/17 at 04:30 Pantoprazole (Protonix Iv) 40 mg DAILY@06 IV Last administered on 03/19/17 06: 09; Admin Dose 40 MG; Start 03/17/17 at 06:00 Atorvastatin Calcium (Lipitor) 40 mg QHS PO Last administered on 03/18/17 21: 40; Admin Dose 40 MG; Start 03/17/17 at 21:00 Metoprolol Tartrate 12.5 mg 12.5 mg Q12 PO Last administered on 03/19/17 09:06 ; Admin Dose 12.5 MG; Start 03/17/17 at 21:00 Dextrose/Sodium Chloride (D5-1/2ns) 1,000 ml @ 75 mls/hr [id number] IV Last administered on 03/19/17 07:06; Admin Dose 75 MLS/HR; Start 03/17/17 at 17:30 Diazepam (Valium) 5 mg OC PO Last administered on 03/19/17 10:31; Admin Dose 5 MG; Start 03/19/17 at 07:00; Stop 03/19/17 at 13:00 Diphenhydramine HCl (Benadryl) 50 mg OC PO Last administered on 03/19/17 10:20 ; Admin Dose 50 MG; Start 03/19/17 at 07:00; Stop 03/19/17 at 13:00 MICHEAL HERBERT March 19, 2017 11:37
[2017-03-19] MEDS ORDERED: AL HYDROX/MG HYDROX/SIMETH 30 ML CUP PO PRN (12:00)
[2017-03-19] MEDS ORDERED: morphine 2 MG INJ IV PRN (12:00)
[2017-03-19] MEDS ORDERED: ONDANSETRON 4 MG INJ IV PRN (12:00)
--- NOTE | 2017-03-19 15:07 | RADRPT ---
Vent Rate: 90 bpm RR Interval: 0 msec MA Interval: 142 msec QRS Duration: 90 msec QT Interval: 386 msec QTC Interval: 472 msec P-R-T Victoria: 71 - 52 - 56 degrees Normal sinus rhythm Cannot rule out Anterior infarct , age undetermined Abnormal ECG Electronically Signed By: Ortiz Garcia [id number]
--- NOTE | 2017-03-19 18:17 | PN ---
DATE: 03/19/2017 TIME OF EVALUATION: 1600. SUBJECTIVE DATA: Denies any chest pain. Complains of pain at the cardiac catheterization site (right radial area). OBJECTIVE DATA: VITAL SIGNS: Temperature 98.4, pulse rate 87, respiratory rate 18, blood pressure 138/77, oxygen saturation 98% on room air. GENERAL: This is a slightly overweight male lying in bed in no apparent distress. HEENT: Head normocephalic and atraumatic. Eyes: Anicteric sclerae. Conjunctivae clear. ENT: Nasal septum is midline. Oral mucosa is moist. NECK: Supple. No JVD noticed. RESPIRATORY: Bilaterally clear to auscultation. No adventitious breath sounds. No use of accessory muscles of respiration. CARDIAC: Regular rate and rhythm. No murmurs. ABDOMEN: Soft, nontender, and nondistended. Bowel sounds positive in all 4 quadrants. GENITOURINARY: Deferred. EXTREMITIES: No cyanosis, no clubbing, no edema. Peripheral pulses are palpable. NEUROLOGIC: The patient is awake, alert, and oriented. Cranial nerves are grossly intact. LABORATORY AND DIAGNOSTIC DATA: WBC 9.1, hemoglobin 13.4, hematocrit 40.3, platelet count 351. Sodium 142, potassium 3.5, chloride 102, carbon dioxide 28 , anion gap 16, BUN 8, creatinine 0.73, glucose 106, calcium 8.6. ASSESSMENT AND PLAN: 1. Non-ST elevation myocardial infarction. Status post left heart catheterization on 03/19/2017 that showed an area of mild to moderate myocardial bridging in the mid LAD without complete compression and a left ventricular ejection fraction of 45% to 50%. The patient was started on beta blockers because of this finding. No aspirin due to possible side effect. 2. Borderline hypertension. Continue antihypertensives. 3. History of familial angioedema. Monitor. 4. Dyslipidemia with suboptimal HDL. Continue the patient on statins. 5. Fluid, electrolytes, and nutrition. Low cholesterol diet. 6. Deep venous thrombosis prophylaxis. Bilateral sequential compression devices. 7. Gastrointestinal prophylaxis. Proton pump inhibitors. 8. Plan. Continue current management. Await cardiology clearance before discharge. Case discussed with Dr. Monk. ANDRA MONK MD, AM/[place] Conf#: [id number] DID#: [id number] CC: XENIA SESAY MD;*EndCC* MTDD
--- NOTE | 2017-03-19 20:52 | CARRPT ---
DATE OF PROCEDURE: 03/19/2017 TYPE OF PROCEDURE: 1. Left heart catheterization. 2. Coronary angiography. 3. Measurement of left ventricular end-diastolic pressure. 4. Left ventriculogram. 5. Moderate concious sedation x 45 minutes ATTENDING PHYSICIAN: Micheal Hanks MD REFERRING PHYSICIAN: Dr. Sesay from the hospitalist service. TYPE OF ANESTHESIA: Conscious and local. INDICATION: Positive troponin concerning for non-ST elevation myocardial infarction. BRIEF HISTORY: Mr. Singleton is a 41-year-old male with history of hypertension , who presented with complaints of substernal chest pain. The patient subsequently ruled in for non-ST elevation myocardial infarction and was brought to the cardiac laundry laborer in order to assess for the possibility of significant obstructive coronary artery disease lending to his symptoms of chest pain and subsequent non-ST elevation myocardial infarction. PROCEDURE: After informed consent was obtained, the patient was brought to the [facility] cardiac catheterization lab where his right radial area was prepped and draped in usual sterile fashion. Lidocaine 2% was infiltrated into the right groin in order to achieve adequate anesthesia. Using modified Seldinger technique, the radial artery was cannulated and a 6- [place]an arterial sheath was placed. A 6-[place]an JL3.5 catheter was used to cannulate the left main coronary ostium. With contrast injection, multiple views of the left coronary system were obtained. Subsequently, JL removed over guidewire. JR4 was used to cannulate the right coronary ostium. With contrast injection, multiple views of the right coronary arterial system. JL4 guidewire and a 6-[place]an pigtail was passed across the aortic valve into the left ventricle. Left end-diastolic pressure was measured. Using a power injector, 20 mL of contrast was injected, opacifying the left ventricle. The pigtail catheter was then pulled back across the aortic valve to assess for significant gradient, which there was not and then removed. Subsequently at this time this completed the procedure. The patient's sheath was removed. TR band was applied. There were no noted complications. FINDINGS: Coronary angiography: Left main 4.5 mm, no significant stenoses. Circumflex proximally is a 3 mm vessel. It is free of any significant stenosis throughout its entirety. There exists a ramus branch which is a 2.5 mm vessel with no significant focal stenoses. The LAD proximally is a 3.5 mm vessel and ostially has a 20% stenosis. In the mid portion of the LAD, there is an area of mild to moderate myocardial bridging between the 2 diagonals and thereafter luminal irregularities up to approximately 20% to 30%. There is a proximal and mid branching diagonal, each 2 mm, with no significant focal stenoses. The right coronary artery proximally is a 3.5 mm vessel and has no significant focal stenoses throughout its entirety. It is a dominant vessel and therefore gives off a sizable PDA 3mm with luminal irregularities of 10% to 20%. The posterolateral branch is a 3 mm vessel and has no significant focal stenosis. Left ventriculogram revealed a mildly depressed left ventricular ejection fraction approximately 45% to 50% with mild apical hypokinesis. Left ventricular end diastolic pressure of 13 pre-LV gram and post-LV gram. No significant aortic stenosis by gradient. TOTAL FLUOROSCOPY TIME: 2.8 minutes. TOTAL CONTRAST: 40 mL. IMPRESSION: 1. Essentially normal coronary arteries with very mild nonobstructive coronary artery disease. 2. Area of mild to moderate myocardial bridging in the mid LAD without complete compression. 3. Mildly depressed left ventricular systolic function with wall motion abnl as above. 4. No significant stenosis by gradient. Normal left ventricular end diastolic pressure. RECOMMENDATIONS: In light of procedure and findings at this time would: 1. Maximize medical management including likely the addition of beta blockers in the setting of myocardial bridging. 2. Aggressive risk factor reduction. 3. The patient will be readmitted to telemetry floor for post-catheterization observation and continued management of presenting symptoms with possible discharge later this afternoon. Dictated By: MICHEAL JARAMILLO/[place] Conf#: [id number] DID#: [id number] CC: XENIA SESAY MD;*EndCC* MTDD
[2017-03-19] MEDS: ATORVASTATIN 40 MG TAB PO SCH (21:52)
[2017-03-20] VITALS (10 sets, daily range): BP systolic 106–122; BP diastolic 61–77; PULSE 61–94; RESP 15–20
[2017-03-20] MEDS: PANTOPRAZOLE 40 MG INJ IV SCH (05:57)
[2017-03-20 07:24] LABS: ADD SCAN DIFF NO
[2017-03-20 07:42] LABS: BASOPHILS % 0.3 % (0.0-2.0); EOSINOPHILS # 0.3 10^3/ul (0.0-0.5); HEMATOCRIT 42.2 % (42.0-52.0); HEMOGLOBIN 13.9 g/dl (14.0-18.0); LYMPHOCYTES # 2.9 10^3/ul (0.8-2.9); LYMPHOCYTES % 28.8 % (15.0-51.0); MEAN CORPUSCULAR HEMOGLOBIN 29.4 pg (29.0-33.0); MEAN CORPUSCULAR HGB CONC 32.9 g/dl (32.0-37.0); MEAN CORPUSCULAR VOLUME 89.4 fl (82.0-101.0); MEAN PLATELET VOLUME 9.5 fl (7.4-10.4); MONOCYTE # 0.5 10^3/ul (0.3-0.9); MONOCYTES % 5.2 % (0.0-11.0); NEUTROPHIL # 6.2 10^3/ul (1.6-7.5); NEUTROPHILS % 62.1 % (39.0-77.0); PLATELET COUNT 372 10^3/UL (140-415); RED BLOOD COUNT 4.72 10^6/ul (4.70-6.10); RED CELL DISTRIBUTION WIDTH 13.7 % (11.5-14.5); WHITE BLOOD COUNT 9.9 10^3/ul (4.8-10.8)
[2017-03-20 07:54] LABS: POTASSIUM 3.9 mmol/L (3.5-5.1)
[2017-03-20 07:57] LABS: CREATININE 0.89 mg/dl (0.61-1.24)
[2017-03-20 07:58] LABS: CALCIUM 8.9 mg/dl (8.4-10.2)
[2017-03-20] MEDS ORDERED: LISINOPRIL 5 MG TAB PO SCH (09:00)
[2017-03-20] MEDS: METOPROLOL 25 MG TAB PO SCH (09:14)
[2017-03-20] MEDS: DEXTROSE 5%-0.45% NACL 1,000 ML IV SCH (12:55)
--- NOTE | 2017-03-20 14:30 | PDOCDIS ---
Discharge Instructions DIAGNOSIS Discharge Diagnosis: NSTEMI CONDITION Patient Condition: Stable HOME CARE INSTRUCTIONS: Special Diet: CARDIAC FOLLOW UP/APPOINTMENTS Appointments 1. John Stewart MD Specialty: Internal Medicine Office Address: [address] [place] [id number] Office 2. Kurt Hanks MD Specialty: Cardiology Office Address: [address] [place] [id number] Office OTHER ORDERS: Other Orders: 1. Take a low of sodium, low-cholesterol diet. 2. Resume activities as tolerated. 3. Follow-up with your primary care physician in 1 week. If you do not have a primary care physician, please call Dr. John Stewart's office. 4. Take medications as per prescription. 5. If you continue to have right wrist pain, please call Dr. Hakns office for extended off from work. 6. Please follow-up with Dr. Hanks in 2 weeks. ANDRA MCCABE NP March 20, 2017 14:30
[2017-03-20] MEDS ORDERED: ATOR40TA68 PO (14:32)
[2017-03-20] MEDS ORDERED: LISI-313 PO (14:32)
[2017-03-20] MEDS ORDERED: METO-448 PO (14:32)
--- NOTE | 2017-03-20 14:44 | CONS ---
Date/Time of Note Date/Time of Note DATE: 03/20/17 TIME: 14:41 Assessment/Plan Assessment/Plan Additional Assessment/Plan 1. Non-ST elevation myocardial infarction with now currently down-trending cardiac enzymes after initial upend. 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 Chest pain secondary to #1. - s/p LHC. 3. Abnormal electrocardiogram with inferior Q's. 4. Hypertension, borderline- better now, on med rx 5. Hereditary angioedema. - tolerated procedure well. 6.Hypokalemia-improved Consultation Date/Type/Reason Admit Date/Time Mar 17, 2017 at 04:36 Initial Consult Date Type of Consultation: Cardiology Referring Provider: XENIA SESAY MD 24 HR Interval Summary Free Text/Dictation Post LHC - tolerated procedure well, in good fluid status now ROS: No fever, no chills, no nausea, no vomiting, no diarrhea/constipation No recent weight changes No chest pain, no PND, no orthopnea No dizziness, blurred vision No thirst, no heat or cold intolerance Exam/Review of Systems Vital Signs Vitals Vital Signs Date Time Temp Pulse Resp B/P Pulse Ox O2 Delivery O2 Flow Rate FiO2 03/20/17 12:05 78 03/20/17 11:31 98.5 17 118/77 96 03/20/17 09:06 Room Air 03/17/17 19:38 2.0 Intake and Output 03/19/17 03/19/17 03/20/17 14:59 22:59 06:59 Intake Total 425 ml 240 ml 250 ml Output Total 400 ml 650 ml Balance 25 ml -410 ml 250 ml Exam General: WN/WD/NAD, AOx 3 HEENT: Unicetric/atraumatic/EOMI (follow commands) NECK: JVD elevated, no thyromegaly Lymph: no lymphadenopathy HEART: regular with no S3, II/ systolic murmur at apex LUNGS: Coarse sounds ABD: soft, NT, ND, +BS : Intact Neuro: non focal SKIN: chronic changes EXT: trace edema Results Result Diagram: 03/20/17 0712 03/20/17 0712 Results 24 hrs Laboratory Tests Test 03/19/17 16:00 03/20/17 07:12 Activated Partial Thromboplast Time 26.0 White Blood Count 9.9 Red Blood Count 4.72 Hemoglobin 13.9 L Hematocrit 42.2 Mean Corpuscular Volume 89.4 Mean Corpuscular Hemoglobin 29.4 Mean Corpuscular Hemoglobin Concent 32.9 Red Cell Distribution Width 13.7 Platelet Count 372 Mean Platelet Volume 9.5 Neutrophils % 62.1 Lymphocytes % 28.8 Monocytes % 5.2 Eosinophils % 3.0 Basophils % 0.3 Nucleated Red Blood Cells % 0.0 Neutrophils # 6.2 Lymphocytes # 2.9 Monocytes # 0.5 Eosinophils # 0.3 Basophils # 0.0 Nucleated Red Blood Cells # 0.0 Sodium Level 143 Potassium Level 3.9 Chloride Level 103 Carbon Dioxide Level 27 Anion Gap 17 H Blood Urea Nitrogen 13 Creatinine 0.89 Glucose Level 96 Calcium Level 8.9 Magnesium Level 2.1 Medications Medications Current Medications Lorazepam (Ativan) 0.5 mg Q6H PRN IV ANXIETY; Start 03/17/17 at 04:30 Nitroglycerin (Nitroglycerin (Sl Tab) 0.4 Mg) 1 tab Q5M PRN SL CHEST PAIN; Start 03/17/17 at 04:30 Pantoprazole (Protonix Iv) 40 mg DAILY@06 IV Last administered on 03/20/17 05: 57; Admin Dose 40 MG; Start 03/17/17 at 06:00 Atorvastatin Calcium 40 mg 40 mg QHS PO Last administered on 03/19/17 21:52; Admin Dose 40 MG; Start 03/17/17 at 21:00 Dextrose/Sodium Chloride (D5-1/2ns) 1,000 ml @ 75 mls/hr [id number] IV Last administered on 03/20/17 12:55; Admin Dose 75 MLS/HR; Start 03/17/17 at 17:30 Morphine Sulfate (morphine) 2 mg Q2H PRN IV FOR NON CARDIAC PAIN (4-10) Last administered on 03/19/17 21:53; Admin Dose 2 MG; Start 03/19/17 at 12:00 Al Hydrox/Mg Hydrox/Simethicone (Mag-Al Plus) 30 ml Q4H PRN PO GASTROINTESTINAL UPSET; Start 03/19/17 at 12:00 Ondansetron HCl (Zofran Inj) 4 mg Q4H PRN IV NAUSEA AND/OR VOMITING; Start 03/19 at 12:00 Metoprolol Tartrate (Lopressor) 25 mg BID PO Last administered on 03/20/17 09: 14; Admin Dose 25 MG; Start 03/19/17 at 12:00 Lisinopril (Zestril) 2.5 mg DAILY PO Last administered on 03/20/17 09:13; Admin Dose 2.5 MG; Start 03/20/17 at 09:00 DANNY BRANHAM MD March 20, 2017 14:44
--- NOTE | 2017-03-20 16:51 | DS ---
DATE OF ADMISSION: 03/17/2017 DATE OF DISCHARGE: 03/20/2017 FINAL DIAGNOSES: 1. Non-ST elevation myocardial infarction. 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 2. Borderline hypertension. 3. Dyslipidemia. 4. Hereditary angioedema. 5. Obesity. CONSULTATIONS: 1. Dr. Kurt Hanks, cardiology. 2. Dr. Kerimt Nicole, cardiology. HOSPITAL COURSE: This is a 41-year-old male with a past medical history of hereditary angioedema on Danazol, who presented to the ER with his complaining of chest pain. The patient verbalized the chest pain in the right upper chest wall area radiating to his right shoulder and right arm. The patient denied any dyspnea, vomiting or diaphoresis. The patient's initial troponin was found to be 1.87. The patient's CT pulmonary angiogram was negative for any PE or aortic dissection. Provided the patient's history of present illness and the diagnostic findings, a clinical decision was made to admit the patient to inpatient setting to have him further evaluated. The patient was admitted to inpatient telemetry floor. A cardiology consult was obtained. The patient was started on a heparin drip. The patient underwent a left heart catheterization on 03/19/2017 that showed mild nonobstructive coronary artery disease, and an area of mild to moderate myocardial bridging in the mid LAD with a mildly depressed left ventricular systolic function with wall motion abnormalities. The patient's 2D echocardiogram also revealed an ejection fraction of 40 to 45%. The patient was started on SABI inhibitors and beta blockers as per cardiology. The patient was not started on any aspirin as per Cardiology recommendations. The patient was also noticed to have dyslipidemia and hence, the patient was started on statins. The patient had a stable hospital course. The patient was cleared by cardiology to be discharged home. The patient denied any complaints at the time of discharge. PLAN: Patient will be discharged home today. The patient was instructed to take a low sodium, low cholesterol diet. He was instructed to resume activities as tolerated. He was instructed to follow up with his primary care physician in 1 week and if he does not have a primary care physician, to please call Dr. John Stewart's office. The patient was instructed to take medications as per prescription. He was instructed that if he continues to have right wrist pain, please call Dr. Hanks' office for extended off from work. The patient was given a letter for excuse from work until 03/26/2017. The patient was instructed to follow up with Dr. Hanks in 2 weeks. The patient verbalized understanding of his discharge instructions. CONDITION AT DISCHARGE: Stable. DISCHARGE MEDICATIONS: 1. Atorvastatin 40 mg p.o. at bedtime. 2. Lopressor 25 mg p.o. b.i.d. 3. Danazol 100 mg p.o. b.i.d. PERTINENT LABORATORY DATA AND PROCEDURES: 1. 2D echocardiogram. Ejection fraction is visually estimated at 40 to 45%. 2. Left heart catheterization. Essentially normal coronary arteries with a very mild nonobstructive coronary artery disease. Area of mild to moderate myocardial bridging mid LAD without complete compression. Mildly depressed left ventricular systolic function with wall motion abnormalities. 4. Latest CBC: WBC 9.9, hemoglobin 13.9, hematocrit 42.2, platelet count 370. 5. Latest BMP: Sodium 142, potassium 3.9, carbon dioxide 26, anion gap 17, BUN 30, creatinine 0.89, glucose 96, calcium 8.9, magnesium 2.1. 6. Hemoglobin A1c 5.6. 7. Fasting lipid panel: Triglycerides 145, total cholesterol 117, LDL 67, HDL 21. 8. CT angiogram of the chest. No evidence of pulmonary embolism or aortic dissection. 9. Bilateral lower extremity venous Doppler study. No sonographic evidence for bilateral lower extremity DVT. 10. Chest x-ray. No definite acute cardiopulmonary disease. At this time, we would like to thank all the consultants for seeing the patient , doing the necessary procedures, and providing clinical recommendations. The case and management of this patient was fully discussed with Dr. Monk. ANDRA MONK MD, AM/[place] Conf#: [id number] DID#: [id number] IKER
== END 2017-03-20 16:15 | disposition home or self-care (01) | DRG 281 ==
LOC: E/R 01:16 → TEL 04:36
PROVIDERS: ADMIT Internal Medicine; ATTEND Internal Medicine
PROC: 4A023N7 Measurement of Cardiac Sampling and Pressure, Left Heart, Percutaneous Approach (ICD-10-PCS; principal; 2017-03-19)
PROC: B2111ZZ Fluoroscopy of Multiple Coronary Arteries using Low Osmolar Contrast (ICD-10-PCS; 2017-03-19)
DX: I21.4 Non-ST elevation (NSTEMI) myocardial infarction (principal); Q24.5 Malformation of coronary vessels; D84.1 Defects in the complement system; I25.10 Atherosclerotic heart disease of native coronary artery without angina pectoris; D72.829 Elevated white blood cell count, unspecified; E87.6 Hypokalemia; R03.0 Elevated blood-pressure reading, without diagnosis of hypertension; R94.31 Abnormal electrocardiogram [ECG] [EKG]; E66.9 Obesity, unspecified; Z68.30 Body mass index [BMI] 30.0-30.9, adult; E78.5 Hyperlipidemia, unspecified
CPT/HCPCS: 36415; 71010; 71275; 80048; 80053; 80061; 82550; 82553; 83036; 83735; 84100; 84443; 84484; 85025; 85378; 85610; 85730; 93005; 93306; 93458; 93970; 96372; 96374; 96375; 96376; C1769; C1887; C9113; J1200; J1644; J1650; J2250; J2270; J3010; J3480; J7030; J7040; J7042; Q9967

== ENCOUNTER 2017-03-27 10:49 | Outpatient (CLI) | payer MEDICAID ==
[~2017-03-27] VITALS: Ht 165.1 cm; Wt 85.0 kg
[~2017-03-27 10:49] MED LIST: ATOR40TA68 PO; METO-448 PO; [UNRECOGNIZED DRUG - CODE] PO
[2017-03-27 11:14] VITALS: Ht 165.1 cm; Wt 85.0 kg
[2017-03-27 11:15] VITALS: BP 124/70; PULSE 75; RESP 16
--- NOTE | 2017-03-27 11:35 | PN ---
Date/Time of Note Date/Time of Note DATE: 03/27/17 TIME: 11:32 Outpatient Progress Note Chief Complaint AK/hypertension/hyperlipidemia/hereditary angioedema HPI AK/patient was recently hospitalized with acute AK, patient doing well, no chest pain, no PND orthopnea, patient on medication, Hypertension/no headache or dizziness, no lightheadedness, Hyperlipidemia/no xanthoma, on medication, no side effect of medication, Inherited angioedema/patient has had a range edema, on medication, no side effect, Review of Systems Const: No Fever, no chills, no Wt. loss, no Fatigue, normal appetite, no diaphoresis. Eyes: No pain, no discharge, no redness, no visual change, no foreign body. ENT: No pain, no bleeding, no congestion, no sore throat, no dysphagia, no discharge or rhinitis. Lymph: No adenopathy, no tender nodes, no lymphedema. Resp: No SOB, no cough, no sputum, no wheezing, no chest pain. CV: No chest pain, no palpitaions, no GUTIERREZ, no PND, no edema. GI: Normal appetite, no pain, no nausea, no vomiting, no diarrhea, no blood, no constipation. : No frequency, no urgency, no dysuria, no hematuria, no flank pain, no discharge, no bleeding. Musc: No bone/joint pain, no back pain, no neck pain, no knee pain, no restricted ROM. Skin: No rash, no skin lesions, no erythema, no laceration, no bruising, no pruritus. Neuro: No SERRANO, no dizziness, no syncope, no seizure, no focal-weakness. Endo: No polyuria, no polydypsia, no dry-skin, no temp-intolerance. Psych: No hallucinations, no depression, no anxiety, no suicidal ideation. Ext: No edema, no pain, no ulcer, no weakness. Physical Exam Vital Signs Date Time Temp Pulse Resp B/P Pulse Ox O2 Delivery O2 Flow Rate FiO2 03/27/17 11:15 97.0 75 16 124/70 96 Room Air General Appearance: A 41 year-old male who appears well-developed, well- nourished, in no acute distress. HEENT: Head normocephalic, atraumatic. Pupils equal, round, reactive to light and accommodate. Sclerae are no jaundice. Nasal turbinates pink without erythema or nasal discharge. Mucous membranes pink and moist without lesions. Oropharynx clear without any exudate or discharge. NECK: Supple. Trachea midline, No thyromegaly, No cervical lymphadenopathy, No mass, No carotid bruits, No JVD, Carotid pulses 2+ bilaterally. PULMONARY: Clear to auscultaion bilaterally, No retractions, Chest expansion symmetric bilaterally, no rales, no ronchi, no dulness on percussion. CARDIAC: Normal SI and S2, Regular rate and rythm, no murmur, gallop, or rub. GASTROINTESTINAL: Abdomen is soft, non-tender, Non Rigid, No distention, Positive bowel sounds x4 quadrants, Liver normal. SKIN: Warm, dry, no rash, no bruise, no echmosis. EXTREMITIES: Bilateral lower extremities normal, no edema, no phlabitus, pulse palpable, no contracture. MUSCULOSKELETAL: Spine Normal, Non-tender, Normal range of motion, No swelling, no deformity, no clubbing, or cyanosis, the patient has no edema to bilateral lower extremities, dorsalis pedis pulses palpable bilaterally. NEUROLOGIC: The patient is awake, alert, oriented, responding to yes/no questions appropriately, moving all extremities, cranial nerve intact, normal strenght, normal power, normal coordination, normal gait. Allergies Coded Allergies: acetaminophen (Verified Allergy, Intermediate, SWOLEN HANDS, FEET, THROAT , 03/17/17) PMH AK/ASHD/hypertension/hyperlipidemia/hereditary angioedema Social Hx No smoking no drinking, Family Hx Noncontributory Patient History: Respiratory disorder 33 MOTHER Assessment/Plan Impression AK/hypertension/hyperlipidemia/angioedema Plan Patient is taking medication prescribed from the hospital, patient does not have enough supply so will refill Lipitor and atenolol, 1 month supply given, Patient is not taking aspirin, patient advised to take a baby aspirin every day, Patient advised to lose weight, Patient advised to follow with the primary care physician and cardiology, check liver panel lipid panel every 3 months, Medications Home Meds Active Scripts Metoprolol Tartrate* (Lopressor*) 25 Mg Tab, 25 MG PO BID for 30 Days, TAB Prov:ANDRA MCCABE [employer] 03/20/17 Atorvastatin* (Atorvastatin*) 40 Mg Tablet, 40 MG PO QHS for 30 Days, TAB Prov:ANDRA MCCABE [employer] 03/20/17 Reported Medications Danazol (Danazol) 100 Mg Capsule, 100 MG PO BID, CAP 03/17/17 JOSE LINCOLN MD March 27, 2017 11:35
== END 2017-03-27 16:30 | disposition home or self-care (01) ==
LOC: DCC 10:49
PROVIDERS: ATTEND Internal Medicine
DX: I21.3 ST elevation (STEMI) myocardial infarction of unspecified site (principal); I10 Essential (primary) hypertension; Z88.6 Allergy status to analgesic agent; T78.3XXA Angioneurotic edema, initial encounter
CPT/HCPCS: G0463

== ENCOUNTER 2018-05-28 01:04 | Emergency (ER) | END 2018-05-28 05:04 | disposition home or self-care (01) ==